=== PATIENT | female | born 1950 ===

== ENCOUNTER 2017-09-04 05:01 | Emergency (ER) | payer MEDICARE, OTHER ==
[2017-09-04] MEDS ORDERED: Sodium Chloride 0.9% 1,000 ML IV STA (05:24)
--- NOTE | 2017-09-04 05:26 | ED PDOC ---
HPI: Abdomen Time Seen by Provider: 09/04/17 05:20 Chief Complaint (Nursing): Back Pain Chief Complaint (Provider): flank pain, left History Per: Patient History/Exam Limitations: no limitations Onset/Duration Of Symptoms: Hrs (2) Current Symptoms Are (Timing): Better Location Of Pain/Discomfort: LLQ, Other (left flank) Associated Symptoms: Nausea, Vomiting Additional Complaint(s): 67 y/o female presents for evaluation of acute onset left flank pain x 2 hours. Associated radiation of pain to left lower back, and 4 episodes of vomiting. Patient reports improvement of pain since onset. Denies fever, chest pain, shortness of breath, palpitations, changes in bowel movements, urinary symptoms. Past Medical History Reviewed: Historical Data, Nursing Documentation, Vital Signs Vital Signs: Last Vital Signs Temp 98.4 F 09/04/17 05:13 Pulse 69 09/04/17 05:13 Resp 16 09/04/17 05:13 BP 159/83 H 09/04/17 05:13 Pulse Ox 97 09/04/17 05:26 - Medical History PMH: HTN - Surgical History Surgical History: - Family History Family History: States: No Known Family Hx - Living Arrangements Living Arrangements: With Family - Allergies Allergies/Adverse Reactions: Allergies Allergy/AdvReac Type Severity Reaction Status Date / Time No Known Allergies Allergy Verified 09/04/17 05:13 Review of Systems ROS Statement: Except As Marked, All Systems Reviewed And Found Negative Gastrointestinal: Positive for: Nausea, Vomiting, Abdominal Pain Musculoskeletal: Positive for: Back Pain Physical Exam - Reviewed Nursing Documentation Reviewed: Yes Vital Signs Reviewed: Yes - Physical Exam Appears: Positive for: Well, Non-toxic, No Acute Distress Head Exam: Positive for: ATRAUMATIC, NORMAL INSPECTION, NORMOCEPHALIC Skin: Positive for: Normal Color Eye Exam: Positive for: Normal appearance ENT: Positive for: Normal ENT Inspection Cardiovascular/Chest: Positive for: Regular Rate, Rhythm Respiratory: Positive for: Normal Breath Sounds Gastrointestinal/Abdominal: Positive for: Bowel Sounds, Soft, Tenderness (llq; mild) Back: Positive for: L CVA Tenderness Extremity: Positive for: Normal ROM Neurologic/Psych: Positive for: Alert - ECG O2 Sat by Pulse Oximetry: 97 - Progress ED Course And Treament: labs, urine, CT renal protocol, IV fluids, IV toradol Disposition - Clinical Impression Clinical Impression: Left flank pain - Disposition Disposition Time: 06:00 Condition: STABLE Forms: [facility] (Thai) Patient Signed Over To: Dao Ruiz Handoff Comments: pending labs, CT, re-eval
[2017-09-04 05:42] LABS: SQUAMOUS EPITHIAL < 1 /hpf (0-5); URINE BACTERIA RARE (<OCC); URINE BILIRUBIN NEGATIVE (NEGATIVE); URINE BLOOD LARGE (NEGATIVE); URINE CLARITY SLIGHTY-CLOUDY (Clear); URINE COLOR STRAW (YELLOW); URINE GLUCOSE (UA) 50 mg/dL (Normal); URINE LEUKOCYTE ESTERASE NEG Leu/uL (Negative); URINE PROTEIN NEGATIVE (NEGATIVE); URINE UROBILINOGEN 0.2-1.0 mg/dL (0.2-1.0)
[2017-09-04 05:46] LABS: BASO # 0.1 K/uL (0.0-0.2); BASO % 0.8 % (0.0-2.0); EOS # 0.1 K/uL (0.0-0.7); EOS % 2.1 % (0.0-4.0); HEMOGLOBIN 13.7 g/dL (12.0-16.0); LYMPH # 2.4 K/uL (1.0-4.3); LYMPH % 32.4 % (20.0-40.0); MEAN CELL VOLUME 90.2 fl (81.0-99.0); MEAN CORPUSCULAR HGB CONC 34.4 g/dL (33.0-37.0); MEAN PLATELET VOLUME 7.6 fl (7.2-11.7); MONO # 0.4 K/uL (0.0-0.8); MONO % 6.1 % (0.0-10.0); NEUT # 4.3 K/uL (1.8-7.0); NEUT % 58.6 % (50.0-75.0); RBC 4.41 Mil/uL (3.80-5.20); RED CELL DISTRIBUTION WIDTH 13.1 % (11.5-14.5); WHITE BLOOD COUNT 7.3 K/uL (4.8-10.8)
[2017-09-04 05:51] LABS: ALB/GLOB RATIO 1.3 (1.0-2.1); ALBUMIN 4.6 g/dL (3.5-5.0); ALT/SGPT 29 U/L (9-52); AST/SGOT 29 U/L (14-36); BLOOD UREA NITROGEN 20 mg/dl (7-17); CALCIUM 9.1 mg/dL (8.4-10.2); GFR AFRICAN-AMERICAN > 60; GFR NON-AFRICAN AMERICAN > 60
--- NOTE | 2017-09-04 07:31 | ED PDOC ---
- Laboratory Results Result Diagrams: 09/04/17 05:30 09/04/17 05:30 Interpretation Of Abn Labs: urine rbc - ECG O2 Sat by Pulse Oximetry: 97 (RA) Pulse Ox Interpretation: Normal - Progress ED Course And Treament: 730: Pt. is stable. AAOx3. Pain free. Tolerated PO. Fu with urology and pcp. Medical Decision Making Medical Decision Makin:00 --67 year old female with right sided flank pain pending CT and reevaluation. 07:07 CT FINDINGS: Lung bases: Unremarkable. No mass. No consolidation. ABDOMEN: Liver: Unremarkable. Gallbladder and bile ducts: Unremarkable. No calcified stones. No ductal dilation. Pancreas: Unremarkable. No ductal dilation. Spleen: Unremarkable. No splenomegaly. Adrenals: Unremarkable. No mass. Kidneys and ureters: There is mild left hydronephrosis and hydroureter secondary to 3 mm stone in the distal ureter.The right kidney is normal. Stomach and bowel: Unremarkable. No obstruction. No mucosal thickening. PELVIS: Appendix: A normal appendix is identified. Bladder: Unremarkable. No stones. Reproductive: Unremarkable as visualized. ABDOMEN and PELVIS: Intraperitoneal space: Unremarkable. No free air. No significant fluid collection. Bones/joints: No acute fracture. No dislocation. Soft tissues: Unremarkable. Vasculature: The aorta demonstrates mild atherosclerotic calcification. No abdominal aortic aneurysm. Lymph nodes: Unremarkable. No enlarged lymph nodes. IMPRESSION: There is mild left hydronephrosis and hydroureter secondary to 3 mm stone in the distal ureter. Scribe Attestation: Documented by Annalise Trivedi, acting as a scribe for Luis Pineda MD Provider Scribe Attestation: All medical record entries made by the Scribe were at my direction and personally dictated by me. I have reviewed the chart and agree that the record accurately reflects my personal performance of the history, physical exam, medical decision making, and the department course for this patient. I have also personally directed, reviewed, and agree with the discharge instructions and disposition. Disposition Counseled Patient/Family Regarding: Studies Performed, Diagnosis, Need For Followup, Rx Given - Clinical Impression Clinical Impression: Ureteral stone - POA Present On Arrival: None - Disposition Referrals: Vanessa Ceballos MD [Primary Care Provider] - 09/05/17 Claudio Arzate MD [Staff Provider] - 09/06/17 Disposition: Routine/Home Disposition Time: 07:37 Condition: STABLE Additional Instructions: Return if not better in 3 days. Prescriptions: Ibuprofen [Motrin] 600 mg PO TID 7 Days tab Tamsulosin [Flomax] 0.4 mg PO DAILY PRN #6 cap PRN Reason: Pain Instructions: Kidney Stones in Adults
[2017-09-04 08:54] VITALS: BP 128/78; PULSE 78; RESP 19; TEMP 97; O2SAT 98
--- NOTE | 2017-09-04 10:09 | CARD ---
APPROVED REPORT Date of service: 09/04/2017 EKG Measurement Heart [id number] <Conclusion> Normal sinus rhythm Nonspecific T wave abnormality Abnormal ECG
--- NOTE | 2017-09-04 11:13 | CT ---
Date of service: 09/04/2017 PROCEDURE: CT Abdomen and Pelvis without intravenous contrast HISTORY: left flank pain, vomiting COMPARISON: None. TECHNIQUE: Helical CT of the abdomen and pelvis was performed without oral or intravenous contrast as per referring physician request. Contrast dose: None Radiation dose: Total exam DLP = 300.00 mGy-cm. This CT exam was performed using one or more of the following dose reduction techniques: Automated exposure control, adjustment of the mA and/or kV according to patient size, and/or use of iterative reconstruction technique. FINDINGS: LOWER THORAX: UnremarkableA 3.7 mm solid nodule seen subpleural at the right middle lobe base image 13 series 5. No additional nodules or masses are identified the bases with fibrotic changes identified at the bilateral lower lobe medial bases mildly. Linear atelectasis or fibrosis in the lingula base. There is mild cardiomegaly and a small hiatal hernia. . LIVER: Unremarkable. No gross lesion or ductal dilatation. GALLBLADDER AND BILE DUCTS: Unremarkable. PANCREAS: Unremarkable. No gross lesion or ductal dilatation. SPLEEN: Unremarkable. ADRENALS: Unremarkable. No mass. KIDNEYS AND URETERS: There is [id number] left hydronephrosis with mild left hydroureter caused by a solitary calculus measuring 4.5 mm at the the distal left ureter at the S2 level. Moderate perinephric and mitchell ureteral reaction is associated at the left with no right-sided obstructive uropathy identified. No additional radiodense urolithiasis is identified bilaterally as well. No gross additional renal soft tissue pathology bilaterally though lack of intravenous contrast limits interpretation. . VASCULATURE: Unremarkable. No aortic aneurysm. BOWEL: The stomach is collapsed. There is mildly prominent fecal loading at the right hemicolon, [id number] otherwise. No bowel obstruction is identified throughout. Evaluation of the gastrointestinal tract is limited due the lack of oral contrast administration. APPENDIX: Unremarkable. Normal appendix. PERITONEUM: Unremarkable. No free fluid. No free air. LYMPH NODES: Unremarkable. No enlarged lymph nodes. BLADDER: The urinary bladder is distended but thin and smooth walled with no radiodense urolithiasis associated. REPRODUCTIVE: Unremarkable. BONES: No acute fracture. OTHER FINDINGS: None. IMPRESSION: 1. Mild to moderate hydronephrosis and mild hydroureter are seen at the left due to 4.5 mm obstructing calculus at the distal left ureter at the S2 level. No additional radiodense urolithiasis bilaterally. Moderate left perinephric reaction identified. 2. No definite additional acute findings in this unenhanced abdomen and pelvis CT exam. Concordant preliminary report from [facility], 09/04/2017.
== END 2017-09-04 08:55 | disposition home or self-care (01) ==
LOC: H.ER 05:01
DX: R10.32 Left lower quadrant pain (principal); N13.2 Hydronephrosis with renal and ureteral calculous obstruction
CPT/HCPCS: 74176; 80053; 81003; 85025; 87086; 93005; 96360; 99284; J1885; J2405; J7030